=== PATIENT | male | born 1985 | race Caucasian/White ===

== ENCOUNTER 2018-09-10 22:43 | Emergency (ER) | payer OTHER, SELFPAY ==
[~2018-09-10] VITALS: Ht 177.8 cm; Wt 75.6 kg
[2018-09-10 22:45] VITALS: BP 143/81
[2018-09-10] MEDS ORDERED: KETOROLAC 30 MG/1 ML IM ONE (23:00)
[2018-09-10] MEDS ORDERED: DIAZEPAM 5 MG TABLET PO ONE (23:00)
[2018-09-10] MEDS ORDERED: DIAZEPAM 5 MG TABLET ONE (23:05)
[2018-09-10] MEDS ORDERED: KETOROLAC 30 MG/1 ML ONE (23:05)
== END 2018-09-11 00:27 | disposition home or self-care (01) ==
LOC: ED 23:02
DX: S39.012A Strain of muscle, fascia and tendon of lower back, initial encounter (principal); X58.XXXA Exposure to other specified factors, initial encounter; Y93.89 Activity, other specified; Y92.89 Other specified places as the place of occurrence of the external cause; Y99.8 Other external cause status
CPT/HCPCS: 96372; 99283; J1885

== ENCOUNTER 2020-10-16 15:51 | Emergency (ER) | payer OTHER ==
[~2020-10-16] VITALS: Ht 175.3 cm; Wt 77.3 kg
[2020-10-16 16:29] LABS: ALANINE AMINOTRANSFERASE 60 U/L (12-78); ALBUMIN 4.4 g/dL (3.4-5.0); ANION GAP 9 mmol/L (5-15); CALCIUM 9.2 mg/dL (8.5-10.1); CHLORIDE 106 mmol/L (98-107)
[2020-10-16] MEDS ORDERED: SODIUM CHLORIDE FLUSH 10ML SYR IVF ONE (16:30)
[2020-10-16] MEDS ORDERED: SODIUM CHLORIDE 0.9% 1,000ML IVBOLUS ONE (16:30)
[2020-10-16 16:32] LABS: ALKALINE PHOSPHATASE 76 U/L (45-117); BILIRUBIN,TOTAL 0.8 mg/dL (0.2-1.0); CREATININE 1.09 mg/dL (0.7-1.3); TOTAL PROTEIN 7.5 g/dL (6.4-8.2)
[2020-10-16 16:35] LABS: BASOPHILS % (AUTO) 1 % (0-1); EOSINOPHILS % (AUTO) 1 % (1-7); LYMPHOCYTES % (AUTO) 26 % (22-44); MEAN CORPUSCULAR HEMOGLOBIN 33.2 pg (27.5-34.5); MEAN CORPUSCULAR HGB CONC 35.1 g/dL (33.2-36.2); MEAN PLATELET VOLUME 7.6 fL (7.4-10.4); MONOCYTES % (AUTO) 7 % (2-9); NEUTROPHILS % (AUTO) 66 % (42-75); PLATELET COUNT 301 x10^3/uL (130-400); RED BLOOD COUNT 5.18 x10^6/uL (4.38-5.82); RED CELL DISTRIBUTION WIDTH 12.7 % (9.4-14.8)
[2020-10-16 16:37] LABS: MD NO
[2020-10-16] MEDS ORDERED: ONDANSETRON 2MG/ML, 2ML IVPush ONE (18:00)
[2020-10-16] MEDS ORDERED: FAMOTIDINE 20 MG/2 ML IVPush ONE (18:00)
--- NOTE | 2020-10-16 18:22 | NUR ---
TASK RN: MD AT BEDSIDE DISCUSSING POC AND RESULTS OF TESTS
[2020-10-16] MEDS ORDERED: ONDANSETRON 2MG/ML, 2ML ONE (18:24)
[2020-10-16] MEDS ORDERED: FAMOTIDINE 20 MG/2 ML ONE (18:25)
[2020-10-16 19:00] VITALS: BP 138/84
--- NOTE | 2020-10-16 19:01 | NUR ---
PT SITTING ON EDGE OF BED AWAITING DISCHARGE. VSS. NAD.
--- NOTE | 2020-10-16 19:12 | NUR ---
PT DISCHARGED. DISCHARGE INSTRUCTIONS EXPLAINED TO PT. AND SIGNIFICANT OTHER, BOTH VERBALIZED UNDERSTANDING. RX AND WORK NOTE GIVEN TO PT. PT AMBULATED TO REGISTRATION AREA WITHOUT INCIDENT.
== END 2020-10-16 19:16 | disposition home or self-care (01) ==
LOC: ED 18:00
DX: K52.89 Other specified noninfective gastroenteritis and colitis (principal); F17.200 Nicotine dependence, unspecified, uncomplicated
CPT/HCPCS: 36415; 74021; 80053; 83690; 85025; 96361; 96374; 96375; 99284; J2405; J7030